=== PATIENT | female | born 1975 | race Caucasian/White ===

== ENCOUNTER 2016-12-06 11:52 | Emergency (ER) | payer MEDICAID ==
[~2016-12-06] VITALS: Ht 167.6 cm; Wt 63.5 kg
[2016-12-06 11:52] VITALS: BP_SYST 112
[2016-12-06] MEDS ORDERED: DIPH-TET-PERTUS Vaccine 0.5 ML VIAL (ADACEL) IM ONE (12:15)
[2016-12-06 12:48] VITALS: BP_SYST 116
== END 2016-12-06 12:49 | disposition home or self-care (01) ==
LOC: SED 11:52
DX: S61.432A Puncture wound without foreign body of left hand, initial encounter (principal); W45.0XXA Nail entering through skin, initial encounter; Y93.89 Activity, other specified; Y99.8 Other external cause status; Y92.89 Other specified places as the place of occurrence of the external cause
CPT/HCPCS: 90715; 99283

== ENCOUNTER 2017-01-01 08:43 | Emergency (ER) | payer MEDICAID ==
[~2017-01-01] VITALS: Ht 167.6 cm; Wt 63.5 kg
[2017-01-01 08:49] VITALS: BP 120/76; PULSE 100; RESP 20; TEMP 97.7; O2SAT 97
--- NOTE | 2017-01-01 09:20 | NUR ---
ambulate to bed 6.
--- NOTE | 2017-01-01 09:34 | NUR ---
ER at bedside examining patient.
--- NOTE | 2017-01-01 09:35 | NUR ---
c/o right lower leg pain and bruise from jumping in the wall on friday.
--- NOTE | 2017-01-01 09:40 | NUR ---
kathe done at bedside.
[2017-01-01 09:50] VITALS: BP 126/74; PULSE 92; RESP 18; TEMP 97.8; O2SAT 100
--- NOTE | 2017-01-01 09:50 | NUR ---
Patient given written and verbal discharge instructions and verbalizes understanding. ER MD discussed with patient the results and treatment provided. Patient in stable condition. ID arm band removed. Rx of Tramadol given. Patient educated on pain management and to follow up with PMD. Pain Scale 4/10, tolerable. Opportunity for questions provided and answered.
== END 2017-01-01 09:50 | disposition home or self-care (01) ==
LOC: SED 08:43
DX: S80.11XA Contusion of right lower leg, initial encounter (principal); W22.8XXA Striking against or struck by other objects, initial encounter; Y93.39 Activity, other involving climbing, rappelling and jumping off; Y92.89 Other specified places as the place of occurrence of the external cause; Y99.8 Other external cause status
CPT/HCPCS: 73590-TC; 81025; 99284